=== PATIENT | female | born 1980 | race Caucasian/White ===

== ENCOUNTER 2018-06-03 10:54 | Observation (INO) | payer BC ==
[2018-06-03] MEDS ORDERED: LR 1,000 ML IV ONE (13:27)
[2018-06-03] MEDS ORDERED: ONDANSETRON 4 MG/2 ML VIAL ONE (14:01)
[2018-06-03] MEDS ORDERED: PROPOFOL 200 MG/20 ML VIAL ONE (14:01)
[2018-06-03] MEDS ORDERED: DEXAMETHASONE 4 MG/ML VIAL ONE (14:01)
[2018-06-03] MEDS ORDERED: fentaNYL 250 MCG/5 ML INJ ONE (14:01)
[2018-06-03] MEDS ORDERED: ROCURONIUM 50 MG/5 ML VIAL ONE ×2 (14:01→16:34)
[2018-06-03] MEDS ORDERED: LIDOCAINE 2% 5 ML SDV ONE (14:01)
[2018-06-03] MEDS ORDERED: MIDAZOLAM 2 MG/2 ML VIAL IVP ONE (14:12)
--- NOTE | 2018-06-03 14:14 | PDHPUP ---
History & Physical Update H&P update statement: This history and physical update is based on an assessment of the patient which was completed after admission or registration (within 24 hours), but prior to the surgery/procedure. H&P update: H&P reviewed & patient examined, no change in patient's condition since H&P completed
--- NOTE | 2018-06-03 14:15 | POSTOPPROG ---
<Shereen Rivera - Last Filed: 06/03/18 14:14> Post Op Note Date of Operation: 06/03/18 Surgeon: Onofre Henry Scallop Binder: Shereen Rivera Complications: no immediate <Onofre Henry - Last Filed: 06/03/18 18:07> Post Op Note Date of Operation: 06/03/18 Surgeon: Onofre Henry Scallop Binder: Parveen Nuñez Anesthesiologist: Korey Arora Anesthesia: GET(General Endotracheal) Pre-op Diagnosis: Choledochal cyst Post-op Diagnosis: Same Procedure: Laparoscopic choledochal cyst excision with IOC Findings: Type 2 choledochal cyst Inf/Abcess present in the surg proc area at time of surgery?: No EBL: Minimal Specimen(s): biliary cyst
[2018-06-03] MEDS ORDERED: BUPIVACAINE/EPI 0.5% 30 ML SDV ONE (15:13)
[2018-06-03] MEDS ORDERED: IOPAMIDOL (ISOVUE-M 300) 15 ML VIAL ONE (16:31)
[2018-06-03] MEDS ORDERED: IOPAMIDOL (ISOVUE-300) 150 ML BTL ONE (16:31)
[2018-06-03] MEDS ORDERED: SUGAMMADEX SODIUM 200 MG/2 ML VIAL IVP ONE (17:19)
[2018-06-03] MEDS ORDERED: ONDANSETRON 4 MG/2 ML VIAL IVP PRN (18:07)
[2018-06-03] MEDS ORDERED: HYDROmorphONE/DILAUDID 1 MG/ML INJ IVP PRN (18:07)
[2018-06-03] MEDS ORDERED: KETOROLAC 30 MG/1 ML SDV IVP ONE (18:07)
[2018-06-03] MEDS ORDERED: KETOROLAC 30 MG/1 ML SDV ONE (18:13)
--- NOTE | 2018-06-03 19:04 | POSTANESTH ---
Post Anesthetic Evaluation Cardiovascular Status: Normal, Stable Respiratory Status: Normal, Stable Level of Consciousness/Mental Status: Can Participate in Eval Pain Control: Adequate, Prn Tx Ordered Nausea/Vomiting Control: Adequate, Prn Tx Ordered Complications Possibly Related to Anesthesia: None Noted
[2018-06-03] MEDS: HYDROCODONE/APAP 5/325 TAB PO PRN (21:03)
[2018-06-04] MEDS: KETOROLAC 15 MG/1 ML SDV IVP SCH ×2 (00:24→05:34)
--- NOTE | 2018-06-04 06:32 | GOP ---
DATE OF OPERATION: 06/03/2018 SURGEON: Onofre Henry MD DELIVERY DEPARTMENT SUPERVISOR: Parveen Nuñez MD ANESTHESIA: General. ANESTHESIOLOGIST: Korey Arora MD. PREOPERATIVE DIAGNOSIS: Biliary cyst. POSTOPERATIVE DIAGNOSIS: Type 2 choledochal cyst. PROCEDURE PERFORMED: Laparoscopic excision of choledochal cyst with intraoperative cholangiography. FINDINGS: Type 2 choledochal cyst. INDICATIONS: 37-year-old morbidly obese female, status post remote laparoscopic cholecystectomy. She has had persistent right upper quadrant pain. Imaging studies disclosed a large cystic structure arising near the hepatic duct confluence. Findings were unclear if related to remnant subtotal gallbladder excision based on prior operative report review versus choledochal cyst. She is undergoing surgical exploration with excision as indicated at this time. Risks and benefits were explained of bleeding, infection, open conversion, bile duct injury, bowel injury, need for additional surgical intervention, as well as others. All questions were answered. She desires to proceed. DESCRIPTION OF PROCEDURE: General anesthesia was induced. The abdomen was injected with 0.5% Marcaine with epinephrine. A vertical supraumbilical cut- down was created. A 10 mm trocar was placed under direct visualization. Three additional 5 mm upper abdominal ports were inserted. Abdominal exploration revealed an extremely fatty heavy liver. Perihepatic adhesions were lysed allowing for the gallbladder to be retracted cephalad. Omental adhesions were taken down toward the jazmine hepatis. Sitting within the upper jazmine was a thin- walled cystic structure. The structure was bluntly teased away from the liver bed fossa and taken toward the common bile duct. The common hepatic artery was identified and preserved. The structure was taken distally where there appeared to be a smooth tapering communication immediately at the confluence of the right and left hepatic ducts. Superiorly there were areas of significant inflammatory change, which initially were unclear if connected to the biliary tree or not. At this point, a hemoclip was placed upon the cystic side and the duct opened. Clear bile was able to be milked retrograde. Intraoperative cholangiography was performed showing a normal common bile duct as well as a rapid duodenal emptying with smooth ampullary tapering. With further filling, the cystic structure was arising immediately at the confluence of the right and left ducts with good filling of both the right and left biliary trees in their entirety. There was no further filling in retrograde fashion going toward the top of the cystic structure. The structure at this point was confirmed to be consistent with a type 2 choledochal cyst. The communication with the major bile duct was occluded with multiple hemoclips. The specimen was removed from the main biliary tree. The remaining dissection was divided using the Harmonic Scalpel. The specimen placed intact into an EndoCatch pouch and brought through the supraumbilical port site intact. Satisfactory hemostasis was assured. Trocars were removed under direct visualization. The supraumbilical midline fascia was closed with a running Vicryl suture. The wounds were closed with Monocryl suture followed by Dermabond. The patient was taken to recovery room, extubated uneventfully. Copy requested to: Dr. Quijano /[id number]/MODL MTDD
--- NOTE | 2018-06-04 07:34 | SOAPPROG ---
SOAP Progress Note Assessment/Plan: Assessment:no overnight issues. min pain. mostly surgical site only rather than RUQ. no nausea or vomiting. avss. O2 70's overnight RA - currently 88 RA. up in bed, comfortable. abd soft. incis clean. elevated transaminase - normal TB/Alk phos. pod#1 s/p lap choledochal cyst excision. doing well. home today. pulm toilet exercises explained. phone f/u 1-2 weeks. full dc instructions explained. Plan: 06/04/18 07:31 06/04/18 07:34 Objective: Vital Signs Temp Pulse Resp BP Pulse Ox 36.7 C 80 16 127/77 H 88 L 06/04/18 03:55 06/04/18 03:55 06/04/18 03:55 06/04/18 03:55 06/04/18 06:00 06/03/18 06/04/18 06/05/18 05:59 05:59 05:59 Intake Total 4300 Output Total 2009 Balance 2290 ICD10 Worksheet Patient Problems: Problems Problem Status Onset Choledochal cyst Acute
[2018-06-04 07:41] VITALS: BP 121/89
[2018-06-04] MEDS: HYDROCODONE/APAP 5/325 TAB PO PRN (09:22)
== END 2018-06-04 09:33 | disposition home or self-care (01) ==
LOC: F3N 13:11 → INTOOBSV 13:11 → F3E 18:37
PROVIDERS: ADMIT Surgery; ATTEND Surgery
DX: Q44.4 Choledochal cyst (principal); K75.81 Nonalcoholic steatohepatitis (NASH); E66.01 Morbid (severe) obesity due to excess calories; Z68.36 Body mass index [BMI] 36.0-36.9, adult
CPT/HCPCS: 47579; 76000; G0378; J1100; J1885; J2250; J2405; J2704; J3010; Q9967